=== PATIENT | female | born 1955 | race Caucasian/White ===

== ENCOUNTER 2021-01-20 10:46 | Outpatient (RCR) | payer MEDICARE, BC, SELFPAY ==
[2016-10-23 11:20] VITALS: BMI 36.4
[2021-01-20] MEDS: COVID-19 VACC, MRNA(PFIZER)/PF 30 MCG/0.3 ML SYRINGE IM (13:12)
[2021-02-10] MEDS: COVID-19 VACC, MRNA(PFIZER)/PF 30 MCG/0.3 ML SYRINGE IM (12:53)
== END 2021-01-20 23:59 ==
LOC: IMMUN 10:46
PROVIDERS: PCP Internal Medicine; Visit Provider Family Medicine
DX: Z23 Encounter for immunization (principal)
CPT/HCPCS: 0001A; 0002A; 91300